=== PATIENT | female | born 1955 | race Caucasian/White ===

== ENCOUNTER 2020-01-15 11:55 | Outpatient (CLI) | payer MEDICARE, SELFPAY ==
--- NOTE | ~2020-01-15 | XR_ITS ---
EXAMINATION: XR_CERV2-3V_CR DATE: 01/15/2020 12:27 INDICATION: Neck pain. TECHNIQUE: 4 views of cervical spine were obtained. COMPARISON: None. FINDINGS: There is 6 degrees levocurvature of cervicothoracic spine. Vertebral body heights are abdon l. There is mildly decreased disc height at C3-C4 and C4-C5 and moderately decreased disc height at C 5-C6 and C6-C7. There is multilevel uncovertebral joint osteoarthritis, severe bilaterally at C5-C6 a nd C6-C7 and on the right at C4-C5. There is multilevel facet joint osteoarthritis, severe bilaterall y at C7-T1. There is mild central canal stenosis at C5-C6 and C6-C7. No prevertebral soft tissue swel ling. IMPRESSION: 1. Severe cervical spondylosis. Reviewed, dictated and finalized at location A.
== END 2020-01-15 11:56 | disposition home or self-care (01) ==
LOC: ANHIMG 12:04
PROVIDERS: PCP Emergency Medicine; Visit Provider Emergency Medicine
DX: R20.0 Anesthesia of skin (principal); M47.892 Other spondylosis, cervical region
CPT/HCPCS: 72040

== ENCOUNTER 2020-04-07 02:08 | Outpatient (CLI) | payer MEDICARE, SELFPAY ==
[2020-04-07 20:49] LABS: SARS-CoV-2 RNA PCR Negative
== END 2020-04-07 02:09 | disposition home or self-care (01) ==
LOC: ANHCOVIDDT 02:08
PROVIDERS: PCP Emergency Medicine; Visit Provider Internal Medicine Gastroenterology
DX: Z01.812 Encounter for preprocedural laboratory examination (principal); Z20.828 Contact with and (suspected) exposure to other viral communicable diseases
CPT/HCPCS: 87635; C9803; U0003

== ENCOUNTER 2020-04-09 01:38 | Day surgery (SDC) | payer MEDICARE, SELFPAY ==
[2020-04-05 09:55] VITALS: BMI 28.5
[2020-04-09 07:16] VITALS: BMI 29.2
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
[2020-04-09] MEDS: LACTATED RINGERS 1,000 ML 150 ML IV CONT (07:32)
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
[2020-04-09 09:04] VITALS: BP 97/66; PULSE 57; RESP 23; O2SAT 98
[2020-04-09 09:14] VITALS: BP 102/65; PULSE 55; RESP 18; O2SAT 98
[2020-04-09 09:24] VITALS: BP 115/75; PULSE 54; RESP 16; O2SAT 98
== END 2020-04-09 09:50 | disposition home or self-care (01) ==
PROVIDERS: PCP Emergency Medicine; Visit Provider Internal Medicine Gastroenterology
PROC: 0DJD8ZZ Inspection of Lower Intestinal Tract, Via Natural or Artificial Opening Endoscopic (ICD-10-PCS; CPT 45378; principal; 2020-04-09 08:30)
DX: Z12.11 Encounter for screening for malignant neoplasm of colon (principal); D12.4 Benign neoplasm of descending colon; D12.5 Benign neoplasm of sigmoid colon; K57.30 Diverticulosis of large intestine without perforation or abscess without bleeding; K21.9 Gastro-esophageal reflux disease without esophagitis; F41.9 Anxiety disorder, unspecified; F31.9 Bipolar disorder, unspecified; Z79.51 Long term (current) use of inhaled steroids; Z79.899 Other long term (current) drug therapy
CPT/HCPCS: 45385; 88305; J2001; J2704; J7120

== ENCOUNTER 2020-04-20 10:00 | Outpatient (RCR) | payer MEDICARE, SELFPAY ==
--- NOTE | 2020-01-27 09:24 | PTOPEVAL ---
Thank you for referring Cherelle Redding to [facility] [place]. Please review, sign, date and return this plan of care LUNA. Pt referred to therapy services to address neck pain and radiating UE symptoms. She requires additional skilled therapy to address UE impairments and decreased tolerance with daily activities. Cont PT 2x/wk x 8 wk to improve UE function. I agree with and certify that the following plan of care is medically necessary. Referring Physician Date Attending Provider: Brian Rodriguez MD *PT Outpatient Evaluation Start: 01/27/20 08:00 Freq: Status: Active Protocol: Document 01/27/20 08:00 ARTURO (Rec: 01/27/20 08:48 [facility] [id number]) Therapy Assessment Status Assessment Status Assessment Status Evaluation Outpatient Past Medical History Past Medical History Source of Past Medical History Patient Musculoskeletal History Hx Fractures Yes Hx Other Musculoskeletal Disorders Yes: right humerour fracture 70's Psychosocial History Hx Bipolar Disorder Yes Evaluation Information Problem Diagnosis cervicalgia, spondylosis cervical region Onset January 04 Cause unknown Subjective Information Reports she has numbness and Query Text:As Reported By Patient/ shaking of syed UE with Family activities. She reports UE shaking with any holding or carrying of objects. Difficulty with heavy objects. Reports numbness and tingling of last 2 finger of syed hands that is constant with varied intensity. Reports difficulty with reaching in the am, but she sleeps on her stomach with UE tucked under her chest. Denies changes with prolonged sitting and standing. But difficulty with fine motor task of typing or use of the phone. Diagnostic Tests X-Rays For This Problem Yes Previous Treatments Previous Treatments For This Problem no Pain Assessment Timing of Pain Assessment Timing of Pain Assessment Assessment Pain Scale Pain Scale Used Numeric (1 - 10) Self Report Pain Assessment Left Arm(s) Reported Pain Level 6 Pain Description Numbness,Radiating,Tightness, Tingling Pain Frequency Continuous Lowest Pain Intensity 6 Greatest Pain Intens
--- NOTE | 2020-02-19 11:54 | PCPTNOTE ---
Patient did not show up for scheduled appointment this date.Called pt, she had the wrong time. Rescheduled for 02/20/20.
--- NOTE | 2020-02-20 11:23 | PTOPEVAL ---
Thank you for referring Cherelle Redding to [facility]. Please review, sign, date and return this plan of care LUNA. Pt has received 8 therapy visits to address neck pain and radiating UE symptoms. She is progressing towards her therapy goals with improved pain, improved cervical motion, improved radiating UE symptoms. She requires additional skilled therapy to achieve maximal potential. Cont PT 2x/wk x 4 wk. I agree with and certify that the following plan of care is medically necessary. Referring Physician Date Admitting Provider: Attending Provider: Brian Rodriguez MD PT re-assessment note *PT Outpatient Evaluation Start: 01/27/20 08:00 Freq: Status: Active Protocol: Document 02/20/20 07:23 ARTURO (Rec: 02/20/20 07:48 [facility] [id number]) Therapy Assessment Status Assessment Status Re-evaluation Evaluation Information Problem Diagnosis cervicalgia, spondylosis cervical region Onset January 04 Cause unknown Additional Evaluation Detail Reports difficulty with reaching in the am, but she sleeps on her stomach with UE tucked under her chest. Denies changes with prolonged sitting and standing. Subjective Information Reports her UE shaking is Query Text:As Reported By Patient/ improving with improved Family ability to perform daily task. She has increased shaking with UE extended in front of her. She reports improved UE radiating symptoms with localized acheness of forearm. She is able to carry heavier objects when close to her body , vs out in front. Reports improved difficulty with fine motor task of typing or use of the phone. She is focusing on her sleeping position to improve UE position and symptoms. She is taking daily walks and trying to focus on activities to decrease her stress level. She is wanting to go to the gym to swim or walk in the water. Pain Assessment Timing of Pain Assessment Timing of Pain Assessment Re-assessment Pain Scale Pain Scale Used Numeric (1 - 10) Self Report Pain Assessment Left Arm(s) Reported Pain Level
--- NOTE | 2020-03-24 15:25 | PTOPEVAL ---
Thank you for referring Cherelle Redding to [facility] The patient is scheduled to be seen for therapy?1 x/week for 4 weeks. Please review, sign, date and return this plan of care LUNA. I agree with and certify that the following plan of care is medically necessary. Referring Physician Date Admitting Provider: Attending Provider: Brian Rodriguez MD Physical therapy progress note *PT Outpatient Evaluation Start: 01/27/20 08:00 Freq: Status: Active Protocol: Document 03/24/20 13:28 ARTURO (Rec: 03/24/20 14:14 ARTURO [id number]) Therapy Assessment Status Assessment Status Assessment Status Re-evaluation Evaluation Information Problem Diagnosis cervicalgia, spondylosis cervical region Onset January 04 Cause unknown Subjective Information Reports she is limiting the Query Text:As Reported By Patient/ amount of leaning on her UE Family when at the table which has improved her UE symptoms. She is performing her HEP consistently and has tolerated progression to 2# weights. Reports her right UE shaking has improving with improved ability to perform daily task. She cont ot have increased shaking with left UE extended with reaching activities. She has a wrist splint for night that has improved her hand/ wrist position. She cont to have the UE radiating symptoms . 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 But she cont to have the shaking with light objects in front of her. Reports improved fine motor with use of the phone or any task with the UE below chest level. Pain Assessment Timing of Pain Assessment Timing of Pain Assessment Re-assessment Pain Scale Pain Scale Used Numeric (1 - 10) Self Report Pain Assessment Left Arm(s) Reported Pain Level 3 Pain Description Aching,Numbness,Radiating, Tingling Pain Radiation Left Arm Pain Frequency Chronic Lowest Pain Intensity 1 Greatest Pain Intensity 4
--- NOTE | 2020-03-29 12:05 | PCPTNOTE ---
Pt No-showed and no-called for appointment this date.
--- NOTE | 2020-04-20 10:42 | PTOPEVAL ---
Thank you for referring Cherelle Redding to [facility].? Pt has been seen for 18 therapy visits to address neck and UE symptoms. She demonstrates improved UE symptoms, strength, neck motion and decreased soft tissue restrictions. She is indep with her HEP at this time. She has achieved her therapy goals. DC skilled therapy services with pt to cont with her HEP. Please review, sign, date and return this plan of care LUNA. I agree with and certify that the following plan of care is medically necessary. Referring Physician Date Attending Provider: Brian Rodriguez MD *PT Outpatient Evaluation Start: 01/27/20 08:00 Freq: Status: Active Protocol: Document 04/20/20 09:59 ARTURO (Rec: 04/20/20 10:40 [facility] [id number]) Therapy Assessment Status Assessment Status Assessment Status Re-evaluation/Discharge Note Evaluation Information Problem Diagnosis cervicalgia, spondylosis cervical region Onset January 04 Cause unknown Additional Evaluation Detail Denies changes with prolonged sitting and standing. Subjective Information She reports no symptoms in her Query Text:As Reported By Patient/ right UE. She has left elbow Family dull ache pain that has decreased since she started therapy. She is able to kd stomach sleeping better with decreased flare-up of symptoms . Reports she is more aware of her posture and UE position with daily activities. She stopped performing her HEP and noticed an increase in her symptoms. But when she resumed her exercise the symptoms improved. But she cont to have the shaking with light objects in front of her, but it has improved since the start of therapy. Pain Assessment Timing of Pain Assessment Timing of Pain Assessment Re-assessment Pain Scale Pain Scale Used Numeric (1 - 10) Self Report Pain Assessment Left Arm(s) Reported Pain Level 2 Pain Description Aching,Dull Pain Frequency Intermittent Lowest Pain Intensity 0 Greatest Pain Intensity 3 Right Arm(s) Reported Pain Level 0 Bilateral Posterior Lateral Neck Reported Pain Level 0 Pain Score Pain Score
== END 2020-04-20 14:23 | disposition home or self-care (01) ==
LOC: ANHPT 10:00
PROVIDERS: PCP Emergency Medicine; Visit Provider Emergency Medicine
DX: M54.2 Cervicalgia (principal); M47.812 Spondylosis without myelopathy or radiculopathy, cervical region
CPT/HCPCS: 97014; 97110; 97112; 97140; 97162; G0283

== ENCOUNTER 2020-05-17 07:45 | Outpatient (CLI) | payer MEDICARE, SELFPAY ==
--- NOTE | ~2020-05-17 | MM_ITS ---
EXAMINATION: MM screening ender BI w antoni HISTORY: Screening TECHNIQUE: Craniocaudal and mediolateral oblique 3-D tomosynthesis images were obtained and synthetic 2-D images were generated. CAD analysis was submitted and interpreted. COMPARISON: No prior mammogram is available for comparison at this institution. BREAST PARENCHYMAL COMPOSITION: There are scattered areas of fibroglandular density. FINDINGS: There is no evidence of suspicious mass, calcification, or architectural distortion to sugg est malignancy in either breast. There has been no suspicious interval change. IMPRESSION: 1. No mammographic evidence of malignancy. 2. Recommend routine screening mammography in one year. BI-RADS Category 1: Negative Reviewed, dictated and finalized at location A.
--- NOTE | ~2020-05-17 | DEXA_ITS ---
Bone Density Report Name: Cherelle Redding Age: 64 Sex: Female Ethnicity: White Date of : 1955 Indication: postmenopausal; parental hip fracture; height loss; asthma or emphysema; Referring Provider: NAEL AARON Study: Bone densitometry was performed. Exam Date: May 17, 2020 Accession number: [id number] Bone Density: Region BMD T-score Z-score Classification AP Spine (L1-L4) 0.861 -1.7 0.1 Osteopenia Femoral Neck (Left) 0.722 -1.1 0.4 Osteopenia Total Hip (Left) 0.876 -0.5 0.7 Normal Total Hip Bilateral Avg 0.826 -1.0 0.3 Normal Femoral Neck (Right) 0.633 -1.9 -0.4 Osteopenia Total Hip (Right) 0.775 -1.4 -0.1 Osteopenia World Health Organization criteria for BMD impression classify patients as: Normal (T-score at or above -1.0), Osteopenia (T-score between -1.0 and -2.5), or Osteoporosis (T-score at or below -2.5). 10-year Fracture Risk(1): Major Osteoporotic Fracture 19% Hip Fracture 1.8% Reported Risk Factors: [place] (), Neck BMD=0.633, BMI=29.3, parental fracture (1) FRAX(R) Version 3.08. Fracture probability calculated for an untreated patient. Fracture probability may be lower if the patient has received treatment. Clinical Information Provided by Patient: Parent has had a hip fracture Has the following medical conditions: Asthma or Emphysema Patient maximum height was 61 Menopause Age: 54 Drinks caffeinated beverages Onset of menses at age 13 Number of children 2 Impression: The patient has low bone mass, based on the Right Femoral Neck T-score. The patient has an estimated ten-year risk of hip fracture of 1.8% and an estimated ten-year risk of major fracture of 19%, based on the WHO FRAX algorithm. The patient has risk factors, including: parental hip fracture. Discussion: BONE DENSITY IS LOW AT ONE OR MORE SKELETAL SITES. This patient's lowest T-score is low at one or more skeletal sites. It meets the World Health Organization's (WHO) criteria for ?low bone mass? (T-score between -1.0 and -2.5). The patient's 10-year risk of fracture as calculated by FRAX is less than the threshold where pharmacological therapy is recommended by the National Osteoporosis Foundation (NOF). However, all treatment decisions require clinical judgment and consideration of individual patient factors, including patient preferences, comorbidities, previous drug use, risk factors not captured in the FRAX model (e.g., frailty, falls, vitamin D deficiency, increased bone turnover, interval significant decline in bone density) and possible under or overestimation of fracture risk by FRAX. The patient should follow a healthful lifestyle (good nutrition with adequate calcium and vitamin D, and appropriate weight-bearing exercise). Follow-Up: Consider repeating this study in 2 to 3 years to joselyn
== END 2020-05-17 07:46 | disposition home or self-care (01) ==
PROVIDERS: PCP Emergency Medicine; Visit Provider Obstetrics & Gynecology Gynecology
DX: Z12.31 Encounter for screening mammogram for malignant neoplasm of breast (principal); Z78.0 Asymptomatic menopausal state; M85.80 Other specified disorders of bone density and structure, unspecified site
CPT/HCPCS: 77063; 77067; 77080

== ENCOUNTER 2021-01-07 16:34 | Emergency (ER) | payer MEDICARE, SELFPAY ==
--- NOTE | ~2021-01-07 | XR_ITS ---
XR knee RT min 4V DATE: 01/07/2021 17:08 INDICATION: Fall, injury, right knee pain TECHNIQUE: 4 views COMPARISON: None FINDINGS: There is prominent suprapatellar knee joint effusion. There is minimal periarticular spurring of the patella. There is moderate loss of interspace height a nd mild particular spurring at the medial compartment. No fracture or dislocation, periosteal reaction or bone destruction is detected. No radiopaque intra- articular loose body or chondrocalcinosis. IMPRESSION: Suprapatellar knee joint effusion Osteoarthritis at medial and to a lesser extent patellofemoral compartments Reviewed, dictated and finalized at location A.
[2021-01-07 16:47] VITALS: BP 127/70; PULSE 90; RESP 16; TEMP 36.4; O2SAT 99
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
== END 2021-01-07 17:56 | disposition home or self-care (01) ==
PROVIDERS: Emergency Provider Registered Nurse; PCP Emergency Medicine
DX: M25.461 Effusion, right knee (principal); M17.11 Unilateral primary osteoarthritis, right knee; K21.9 Gastro-esophageal reflux disease without esophagitis; M81.0 Age-related osteoporosis without current pathological fracture; F31.9 Bipolar disorder, unspecified
CPT/HCPCS: 73564; 99213; G0463

== ENCOUNTER → 2021-01-20 11:25 | Outpatient (CLI) | payer MEDICARE, SELFPAY ==
--- NOTE | ~2021-01-20 | MR_ITS ---
EXAMINATION: MR knee RT wo con DATE: 01/20/2021 12:01 INDICATION: Left knee pain post fall TECHNIQUE: Magnetic resonance imaging (MRI) of the left knee was performed without intravenous contra st. Sequences included coronal PD-weighted FSE, coronal PD-weighted FS FSE, sagittal T2-weighted FSE , sagittal PD-weighted FS FSE and axial PD weighted fat saturated FSE. COMPARISON: Left knee radiographs dated 01/07/2021 FINDINGS: Medial compartment: There is a radial tear/avulsion at the posterior root of the medial meniscus with 8 x 5 x 7 mm hetero topic ossicle replacing the lateral side of the posterior horn at the site of the tear. There is mild medial extrusion of the meniscal body where there is a longitudinal horizontal tear extending to con tact the inferior surface. Partial-thickness cartilage loss involving greater than 50% the cartilage thickness at the medial two thirds of the medial tibial plateau with mild underlying subarticular justice ma. Additional partial thickness cartilage loss throughout the weightbearing medial femoral condyle m ost prominent anteriorly and centrally where it involves greater than 50% the cartilage thickness. Th ere is scattered chondral ulceration and fissuring. Small region of cortical irregularity and mild schneider barticular edema at the central weightbearing medial femoral condyle and more extensive cortical irre gularity with edema and subarticular cystic changes along the posterior weightbearing medial femoral condyle. Lateral compartment: Bucket-handle tear involving the body and posterior horn of the lateral meniscus with anterior displa cement of the flap resulting in a double anterior horn sign and with portion of the displaced flap ex tending posteriorly along the intercondylar eminence. The nondisplaced body and posterior horn of the lateral meniscus are diminutive. There is a subarticular likely stress fracture resulting from the d isplaced meniscal flap which results in a shallow concavity to the lateral aspect of the anterior atul ghtbearing lateral femoral condyle with curvilinear low signal intensity subarticular fracture line a nd surrounding marrow edema. The cartilage in the lateral compartment appears relatively preserved. Patellofemoral compartment: Partial-thickness cartilage loss along the cephalad half of the patella with tiny focus of subarticul ar edema underlying a region of deeper fissuring at the cephalad aspect of the apical ridge and later al margin of the medial facet. Trochlear cartilage appears relatively preserved. Ligaments and tendons: There is a tear at the proximal aspect of the anterior cruciate ligament with lax appearance and shal low angle of the anterior cruciate ligament more distally in the intercondylar notch. The posterior c ruciate ligament is normal. The medial collateral ligament and fibular collateral ligament complex ar e normal. The extensor mechanism is normal. The visualized medial and lateral hamstring tendons as we ll as the iliotibial band are normal. Fluid: Small to moderate-sized right knee joint effusion. Mild synovitis at the suprapatellar pouch and denise g the posterior margin of Hoffa's fat pad. Small Reyes's cyst. No loose osteochondral bodies identifi ed. Osseous/other: Bone alignment is normal. No other fracture site from the previous noted stress fracture at the later al femoral condyle. No pathologic marrow replacing process. IMPRESSION: 1. Complete tear of the proximal anterior cruciate ligament. 2. Anteriorly displaced bucket-handle tear of the lateral meniscus. 3. Likely stress fracture of the anterolateral aspect of the weightbearing lateral femoral condyle li josh resulting from altered stress distribution secondary to the underlying displaced meniscal flap. 4. Likely chronic radial tear/avulsion at the posterior root of the medial meniscus with heterotopic ossification within the posterio
== END ==
PROVIDERS: Visit Provider Orthopaedic Surgery
DX: S83.501A Sprain of unspecified cruciate ligament of right knee, initial encounter (principal); M17.11 Unilateral primary osteoarthritis, right knee; M25.461 Effusion, right knee; M71.21 Synovial cyst of popliteal space [Baker], right knee
CPT/HCPCS: 73721

== ENCOUNTER 2021-03-29 00:29 | Day surgery (SDC) | payer MEDICARE, SELFPAY ==
[2021-03-17 15:24] VITALS: BMI 28.3
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
[2021-03-29] VITALS (8 sets, daily range): BP systolic 137–157; BP diastolic 71–96; PULSE 56–81; RESP 13–18; TEMP 36.2–36.4; O2SAT 97–100
--- NOTE | 2021-03-29 07:23 | WPDHPUPDATE1 ---
History and Physical Update Update Date/Time: 03/29/21 07:23 History and Physical has been reviewed, including an updated exam of the patient. There are NO changes in the patient's condition. Risks, benefits, and alternatives have been discussed and questions answered. Patient agrees to proceed with procedure.
[2021-03-29] MEDS: ACETAMINOPHEN 500 MG TABLET 1000 MG PO (10:34)
[2021-03-29] MEDS: CELECOXIB 200 MG CAPSULE PO (10:34)
[2021-03-29] MEDS: LACTATED RINGERS 1,000 ML 30 ML IV CONT ×2 (10:45→13:58)
[2021-03-29] MEDS: ceFAZolin 2 GM/D5W 50 ML 2 GM/50 ML BAG IVPB (12:06)
[2021-03-29] MEDS: BUPIVACAINE HCL 0.5% PF 30 ML VIAL INFILTRATE (12:53)
--- NOTE | 2021-03-29 13:52 | W.PM.PROC2 ---
Procedure Note - Detailed Date of Procedure 03/29/21 Pre-op Diagnosis right medial and lateral meniscus tear Post-op Diagnosis same Procedure Performed RIGHT KNEE SCOPE Surgeon Gene Morrison MD Anesthesia general Description of Procedure PATIENT WAS TAKEN TO THE OR. RIGHT LEG WAS PREPPED AND DRAPED STERILE. TROCARS WERE PLACED IN THE USUAL FASHION. CAMERA WAS INTRODUCED. THERE WAS CHONDROMALACIA TO THE PATELLA FEMORAL JOINT. THERE WAS A LOT OF SYNOVITIS IN ALL COMPARTMENTS. THE MEDIAL COMPARTMENT SHOWED CHONDROMALACIA AND FULL THICKNESS DEFECT TO THE MEDIAL FEMORAL CONDYLE. A SHAVER WAS USED TO PREFORM A CHONDROPLASTY. THERE WAS A COMPLEX MEDIAL MENISCUS TEAR. THE TEAR WAS RESECTED WITH A BITER AND A SHAVER DOWN TO A SMOOTH BASE. ABOUT 30% OF THE MENISCUS WAS REMOVED. THE ACL WAS INTACT. THE LATERAL MENISCUS WAS TORN AT THE ANTERIOR HORN. THE TEAR WAS RESECTED. THE LAT COMPARTMENT HAD GRADE 2 CHONDROMALACIA AT THE LATERAL PLATEAU. CHONDROPLASTY WAS PREFORMED. A SYNOVECTOMY WAS PREFORMED WELL. THE PATELLO FEMORAL JOINT UNDERWENT CHONDROPLASTY. THERE WAS GRADE 2 CHONDROMALACIA IN MOST OF THE TROCHLEA AND PART OF THE PATELLA. SYNOVECTOMY WAS PREFORMED IN THE SUPERIOR MEDIAL COMPARTMENT. THE WOUNDS WERE APPROXIMATED WITH 4.0 NYLON. STERILE DRESSING WAS APPLIED. PATIENT WAS EXTUBATED. Estimated Blood Loss 5 Complications No immediate complications Condition stable Disposition PACU
[2021-03-29] MEDS: oxyCODONE HCL (*CRX) 5 MG TAB IR PO (14:47)
== END 2021-03-29 15:20 | disposition home or self-care (01) ==
PROVIDERS: PCP Emergency Medicine; Visit Provider Orthopaedic Surgery
PROC: (CPT 29870; principal; 2021-03-29 12:00)
DX: S83.231A Complex tear of medial meniscus, current injury, right knee, initial encounter (principal); S83.281A Other tear of lateral meniscus, current injury, right knee, initial encounter; M65.861 Other synovitis and tenosynovitis, right lower leg; M22.41 Chondromalacia patellae, right knee; F31.9 Bipolar disorder, unspecified; F41.9 Anxiety disorder, unspecified; Z79.899 Other long term (current) drug therapy; X58.XXXA Exposure to other specified factors, initial encounter; Y93.9 Activity, unspecified; Y92.9 Unspecified place or not applicable; Y99.9 Unspecified external cause status
CPT/HCPCS: 29880; A9270; J0690; J1100; J2250; J2405; J2704; J3010; J7120

== ENCOUNTER 2021-05-20 14:23 | Outpatient (CLI) | payer MEDICARE, SELFPAY ==
--- NOTE | ~2021-05-20 | MM_ITS ---
EXAMINATION: MM screening ender BI w antoni HISTORY: Screening TECHNIQUE: Craniocaudal and mediolateral oblique 3-D tomosynthesis images were obtained and synthetic 2-D images were generated. CAD analysis was submitted and interpreted. COMPARISON: No prior mammogram is available for comparison at this institution. BREAST PARENCHYMAL COMPOSITION: There are scattered areas of fibroglandular density. FINDINGS: There is no evidence of suspicious mass, calcification, or architectural distortion to sugg est malignancy in either breast. There has been no suspicious interval change. IMPRESSION: 1. No mammographic evidence of malignancy. 2. Recommend routine screening mammography in one year. BI-RADS Category 1: Negative Reviewed, dictated and finalized at location A.
== END 2021-05-20 14:24 | disposition home or self-care (01) ==
LOC: ANHIMG 14:26
PROVIDERS: PCP Emergency Medicine; Visit Provider Obstetrics & Gynecology Gynecology
DX: Z12.31 Encounter for screening mammogram for malignant neoplasm of breast (principal)
CPT/HCPCS: 77063; 77067

== ENCOUNTER 2021-06-22 11:00 | Outpatient (RCR) | payer MEDICARE, SELFPAY ==
--- NOTE | 2021-04-22 09:51 | PTOPEVAL ---
Thank you for referring Cherelle Redding to [facility].? The patient is scheduled to be seen for therapy? 2 x/week for 6 weeks. Please review, sign, date and return this plan of care LUNA. I agree with and certify that the following plan of care is medically necessary. Referring Physician Date Attending Provider: Gene Morrison MD Diagnosis right meniscus tear, OA of knee Onset 01/06/21 Cause fall Additional Evaluation Detail MRI: . Complete tear of the proximal anterior cruciate ligament. 2. Anteriorly displaced bucket -handle tear of the lateral meniscus. 3. Likely stress fracture of the anterolateral aspect of the weightbearing lateral femoral condyle likely resulting from altered stress distribution secondary to the underlying displaced meniscal flap. 4. Likely chronic radial tear/ avulsion at the posterior root of the medial meniscus with heterotopic ossification within the posterior horn at the tear margin. Additional longitudinal horizontal tear in the medial extruded medial meniscal body. 5. Mild to moderate osteoarthritis with extensive moderate and high-grade chondromalacia in the medial compartment. 6. Mild patellofemoral osteoarthritis with small region of moderate and high- grade chondromalacia at the cephalad patella. 7. Small to moderate-sized right knee joint effusion. 8. Small Reyes's cyst. Subjective Information She had a fall down steps Query Text:As Reported By Patient/ landing and twisting on knee. Family She had surgery on 03/29/21. She had a ww she used for 3 days with [facility]. She is working on her knee range and walking the dog as
--- NOTE | 2021-05-05 10:10 | PCPTNOTE ---
Patient called & cancelled scheduled appointment this date due to having to sit with daughter.
--- NOTE | 2021-05-23 11:00 | PTOPEVAL ---
Physical Therapy Progress Note Thank you for referring Cherelle Redding to [facility].? She has attended 9 therapy visits to address her LE impairments related to her knee surgery. She is progressing towards her therapy goals. See summary below for progress and objective information. The patient is scheduled to be seen for therapy? 2 x/week for 4 weeks. Please review, sign, date and return this plan of care LUNA. I agree with and certify that the following plan of care is medically necessary. Referring Physician Date Attending Provider: Gene Morrison MD Diagnosis right meniscus tear, OA of knee Onset 01/06/21 Cause fall Additional Evaluation Detail She had surgery on 03/29/21. MRI: Complete tear of the proximal anterior cruciate ligament. 2. Anteriorly displaced bucket -handle tear of the lateral meniscus. 3. Likely stress fracture of the anterolateral aspect of the weightbearing lateral femoral condyle likely resulting from altered stress distribution secondary to the underlying displaced meniscal flap. 4. Likely chronic radial tear/ avulsion at the posterior root of the medial meniscus with heterotopic ossification within the posterior horn at the tear margin. Additional longitudinal horizontal tear in the medial extruded medial meniscal body. 5. Mild to moderate osteoarthritis with extensive moderate and high-grade chondromalacia in the medial compartment. 6. Mild patellofemoral osteoarthritis with small region of moderate and high- grade chondromalacia at the cephalad patella. 7. Small to moderate-sized right knee joint effusion. 8. Small Reyes's cyst. Subjective Information She does feel her pain is Query Text:As Reported By Patient/ better. Reports improved knee Family motion, ability to get in/
--- NOTE | 2021-06-22 11:49 | PTOPEVAL ---
Physical Therapy Discharge Summary Thank you for referring Cherelle Redding to [facility].?She has attended 17 therapy visits to address her LE impairments following her knee surgery. She has reached maximal potential with skilled therapy services at this time with goals partially achieved. She has been provided a HEP and performs indep. Will DC skilled therapy services at this time. Please review, sign, date and return this discharge summary LUNA. I agree with and certify that the following plan of care is medically necessary. Referring Physician Date Admitting Provider: Attending Provider: Gene Morrison MD Diagnosis right meniscus tear, OA of knee Onset 01/06/21 Cause fall Additional Evaluation Detail She had surgery on 03/29/21. Subjective Information She reports limitations with Query Text:As Reported By Patient/ prolonged sitting and Family negotiating steps. She is able to kneel on the ground and push up with right leg. She thinks she has mental hesitation on steps. Pain Assessment Self Report Pain Assessment Right Knee(s) Reported Pain Level 1 Pain Frequency Chronic,Intermittent Lowest Pain Intensity 0 Greatest Pain Intensity 6 Pain Aggravating Factors Prolonged Position,Stair Climbing Lower Extremity Range of Motion Knee Range of Motion Right Knee Flexion Range of Motion - Active 115 Knee Extension Range of Motion - Active -10 Knee Range of Motion Limitations Pain,Soft Tissue Restriction Lower Extremity Muscle Strength Testing Hip Strength Right Hip Flexion Strength 5 Normal Hip Extension Strength 4- Good - Hip Abduction Strength 4- Good - Knee Strength Right Knee Flexion Strength 5 Normal Knee Extension Strength 5 Normal Extremity Circumference Assessment Circumference Assessment Location Right Body Part Knee Site Descriptor ([place]) lateral knee joint line Circumference (cm) 36 Noninvolved Side Circumference (cm) 34 Circumference Comments inf patella: right: 33 cm, left: 31 cm Balance Assessment Timed Up and Go Test (TUG) (Seconds) 7 Assistive Devices None 5 Time Sit to Stand Time in Seconds 9 5 Time Sit to Stand Comments demo = LE WB with movement Query Text:Normative Data: If Greater Than 15 Seconds, 74% Increase Risk for Recurrent Falls Gait Assessment Gait Pattern Assessment Gait Pattern Trendelenburg Gait Gait Pattern Observed Decreased Stride Length - Left ,Decreased Stride Length -
== END 2021-06-23 10:57 | disposition home or self-care (01) ==
LOC: ANHPT 11:00
PROVIDERS: PCP Emergency Medicine; Visit Provider Orthopaedic Surgery
DX: Z48.89 Encounter for other specified surgical aftercare (principal)
CPT/HCPCS: 97014; 97035; 97110; 97112; 97116; 97140; 97162; 97530; G0283

== ENCOUNTER 2021-09-22 10:04 | Outpatient (CLI) | payer OTHER, SELFPAY ==
--- NOTE | 2021-09-22 11:30 | NEURO_ITS ---
Impression: # Complains of numbness and tremors. # Normal nerve conduction study. # Normal needle/EMG exam with resting tremors. # Clinical correlation recommended. Nerve Conduction Studies Anti Sensory Summary Table Stim Site NR Peak (ms) P-T Amp (?V) Site1 Site2 Delta-P (ms) Dist (cm) Geo (m/s) Left Median Anti Sensory (2-3nd Digit) Wrist 3.0 60.6 Wrist 2-3nd Digit 3.0 14.0 47 Wrist 3.0 76.6 Wrist 2-3nd Digit 3.0 14.0 47 Right Median Anti Sensory (2-3nd Digit) Wrist 3.2 50.5 Wrist 2-3nd Digit 3.2 14.0 44 Wrist 3.0 66.6 Wrist 2-3nd Digit 3.2 14.0 44 Left Radial Anti Sensory (Base 1st Digit) Wrist 1.7 40.1 Wrist Base 1st Digit 1.7 0.0 Right Radial Anti Sensory (Base 1st Digit) Wrist 1.9 19.0 Wrist Base 1st Digit 1.9 0.0 Left Ulnar Anti Sensory (5th Digit) Wrist 2.2 88.8 Wrist 5th Digit 2.2 14.0 64 Right Ulnar Anti Sensory (5th Digit) Wrist 2.1 63.3 Wrist 5th Digit 2.1 14.0 67 Motor Summary Table Stim Site NR Onset (ms) O-P Amp (mV) Site1 Site2 Delta-0 (ms) Dist (cm) Geo (m/s) Left Median Motor (Abd Poll Brev) Wrist 3.4 2.0 Elbow Wrist 5.0 27.0 54 Elbow 8.4 3.3 Right Median Motor (Abd Poll Brev) Wrist 3.3 4.5 Elbow Wrist 5.0 26.0 52 Elbow 8.3 1.8 Left Ulnar Motor (Abd Dig Minimi) Wrist 2.7 4.9 A Elbow Wrist 4.6 27.0 59 A Elbow 7.3 4.1 Right Ulnar Motor (Abd Dig Minimi) Wrist 2.4 7.2 A Elbow Wrist 4.8 28.0 58 A Elbow 7.2 5.5 F Wave Studies NR F-Lat (ms) L-R F-Lat (ms) Left Median (Mrkrs) (Abd Poll Brev) 28.05 0.97 Right Median (Mrkrs) (Abd Poll Brev) 27.08 0.97 Left Ulnar (Mrkrs) (Abd Dig Min) 28.32 1.53 Right Ulnar (Mrkrs) (Abd Dig Min) 26.80 1.53 EMG Side Muscle Nerve Root Ins Act Fibs Amp Dur Recrt Comment Right 1stDorInt Ulnar C8-T1 Nml Nml Nml Nml Nml Right Ext Indicis Radial (Post Int) C7-8 Nml Nml Nml Nml Nml Right Ext Digitorum Radial (Post Int) C7-8 Nml Nml Nml Nml Nml Right BrachioRad Radial C5-6 Nml Nml Nml Nml Nml Right PronatorTeres Median C6-7 Nml Nml Nml Nml Nml Right Abd Poll Brev Median C8-T1 Nml Nml Nml Nml Nml Left 1stDorInt Ulnar C8-T1 Nml Nml Nml Nml Nml Left Ext Indicis Radial (Post Int) C7-8 Nml Nml Nml Nml Nml Left Ext Digitorum Radial (Post Int) C7-8 Nml Nml Nml Nml Nml Left BrachioRad Radial C5-6 Nml Nml Nml Nml Nml Left PronatorTeres Median C6-7 Nml Nml Nml Nml Nml Left Abd Poll Brev Median C8-T1 Nml Nml Nml Nml Nml MTDD
== END 2021-09-22 10:05 | disposition home or self-care (01) ==
PROVIDERS: PCP Emergency Medicine; Visit Provider Emergency Medicine
DX: R25.1 Tremor, unspecified (principal)
CPT/HCPCS: 95886; 95911

== ENCOUNTER 2022-06-05 08:10 | Outpatient (CLI) | payer OTHER, SELFPAY ==
--- NOTE | ~2022-06-05 | MM_ITS ---
EXAMINATION: MM screening [facility] BI w antoni HISTORY: Screening TECHNIQUE: Craniocaudal and mediolateral oblique 3-D tomosynthesis images were obtained and synthetic 2-D images were generated. CAD analysis was submitted and interpreted. COMPARISON: Comparison to multiple prior studies sequentially, with oldest reviewed study dated 05/06. BREAST PARENCHYMAL COMPOSITION: There are scattered areas of fibroglandular density. FINDINGS: There is no evidence of suspicious mass, calcification, or architectural distortion to sugg est malignancy in either breast. There has been no suspicious interval change. IMPRESSION: 1. No mammographic evidence of malignancy. 2. Recommend routine screening mammography in one year. BI-RADS Category 1: Negative Reviewed, dictated and finalized at location A.
== END 2022-06-05 08:11 | disposition home or self-care (01) ==
LOC: ANHIMG 08:12
PROVIDERS: PCP Emergency Medicine; Visit Provider Emergency Medicine
DX: Z12.31 Encounter for screening mammogram for malignant neoplasm of breast (principal)
CPT/HCPCS: 77063; 77067

== ENCOUNTER 2022-10-13 07:34 | Outpatient (CLI) | payer OTHER, SELFPAY ==
--- NOTE | ~2022-10-13 | CT_ITS ---
EXAMINATION: CT abdomen pelvis w con DATE: 10/13/2022 08:14 INDICATION: Epigastric and right upper quadrant abdominal pain, nausea, constipation TECHNIQUE: Computed tomography (CT) of the abdomen and pelvis was performed with 100 CC Omnipaque 350 intravenous contrast. Automated exposure control and iterative reconstruction technique were employe d. Exam dose: 666.74 mGy-cm total exam DLP. COMPARISON: 03/11/2019 pelvic ultrasound 10/04/2018 gallbladder ultrasound FINDINGS: There is a discoid band of atelectasis or scarring in the base of the lingula. There is mil d discoid atelectasis or scarring in the middle lobe as well. Normal heart size. No pericardial or pleural effusion. The liver, gallbladder, bile ducts, pancreas, pancreatic duct, spleen, adrenal glands are unremarkabl e. 1.8 cm upper pole right renal cyst. Up to 8.7 x 11 mm area of hypoenhancement at the anterior mid left kidney, which may be due to focal scarring, cyst or less likely neoplasm. No urinary tract calculus or hydroureteronephrosis. Normal caliber of the abdominal aorta. No intraperitoneal or retroperitoneal or pelvic mass lesion or adenopathy or ascites. The uterus, adnexal areas and urinary bladder are unremarkable. Normal appendix. Diverticulosis of left and right colon. There is focal soft tissue thickening of the proximal transve rse colon with mild pericolic fat stranding which may represent mild focal diverticulitis. No diverti cular abscess is detected. No intraperitoneal free air. No bowel obstruction, bowel wall thickening, pneumatosis or intraperitoneal free air is detected. Anterior wedging and loss of height of T12 and some irregularity of the vertebral endplates of additi onal lower thoracic vertebral bodies may be due to Scheuermann's disease. Chronic T12 compression fra cture is not excluded. IMPRESSION: Focal mild diverticulitis is suggested at the proximal transverse colon Diverticulosis of left and right colon Normal appendix 1.8 cm upper pole right renal cyst Nonspecific focal area of diminished enhancement at the anterior mid left kidney, possibly focal scar , cyst or less likely neoplasm Reviewed, dictated and finalized at Location [facility]. Reviewed, dictated and finalized at location B. D CARE DIRECTOR IMPRESSION: Focal mild diverticulitis is suggested at the proximal transverse colon Diverticulosis of left and right colon Normal appendix 1.8 cm upper pole right renal cyst Nonspecific focal area of diminished enhancement at the anterior mid left kidne y, possibly focal scar, cyst or less likely neoplasm
== END 2022-10-13 07:35 | disposition home or self-care (01) ==
PROVIDERS: PCP Emergency Medicine; Visit Provider Emergency Medicine
DX: R10.9 Unspecified abdominal pain (principal); J44.9 Chronic obstructive pulmonary disease, unspecified; N28.1 Cyst of kidney, acquired; K57.30 Diverticulosis of large intestine without perforation or abscess without bleeding
CPT/HCPCS: 74177; Q9967

== ENCOUNTER 2022-10-19 11:59 | Emergency (ER) | payer OTHER, SELFPAY ==
[2022-10-19 12:02] VITALS: BP 124/70; PULSE 81; RESP 19; TEMP 36.4; O2SAT 99
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
[2022-10-19 13:20] LABS: Basophils Percent Auto 0.4 % (0.2-1.2); Eosinophils Absolute Auto 0.1 K/mm3 (0-0.3); Eosinophils Percent Auto 0.7 % (0-4.4); Hematocrit 44.6 % (37.0-47.0); Hemoglobin 14.3 g/dL (12.0-15.0); Immature Granulocyte Absolute 0.02 K/mm3 (0.00-0.031); Immature Granulocyte Percent A 0.2 % (0-0.5); Lymphocytes Absolute Auto 1.42 K/mm3 (0.9-3.2); Lymphocytes Percent Auto 15.5 % (18.3-44.2); Mean Corpuscular HGB Conc 32.1 g/dl (32-36); Mean Corpuscular Hemoglobin 28.6 pg (26-34); Mean Corpuscular Volume 89.2 fl (80-100); Mean Platelet Volume 9.6 fl (7.4-10.4); Monocytes Absolute Auto 0.5 K/mm3 (0.1-0.6); Monocytes Percent Auto 5.9 % (2.6-8.5); Neutrophils Absolute Auto 7.1 K/mm3 (1.3-6.7); Neutrophils Percent Auto 77.3 % (45.5-73.1); Platelet Count Result 270 k/mm3 (150-375); Red Cell Distribution Width 13.9 % (11.5-14.5); White Blood Count 9.1 K/mm3 (4.5-10.0)
[2022-10-19 13:36] LABS: Amphetamine Screen Urine Negative (Negative); Barbiturate Screen Urine Positive (Negative); Benzodiazepines Screen Urine Negative (Negative); Cannabinoid Screen Urine Negative (Negative); Cocaine Screen Urine Negative (Negative); Methadone Screen Urine Negative (Negative); Opiate Screen Urine Negative (Negative); Phencyclidine Screen Urine Negative (Negative)
[2022-10-19 13:37] LABS: Acetaminophen < 10 ug/mL (10-30); Ethanol < 10 mg/dL (<10); Salicylate < 1.0 mg/dL (2-20)
[2022-10-19 13:38] LABS: Alanine Aminotransferase 21 U/L (6-35); Albumin Level 4.4 g/dL (3.5-5.1); Alkaline Phosphatase 97 U/L (38-126); Anion Gap 5 mmol/L (8-16); Aspartate Amino Transferase 29 U/L (14-36); Bilirubin,Total 0.5 mg/dL (0.2-1.3); Blood Urea Nitrogen 15 mg/dL (7-17); Calcium 9.6 mg/dL (8.4-10.2); Carbon Dioxide 30 mmol/L (22-30); Chloride 104 mmol/L (98-107); Estimated CRCL calculation 43 ml/min; Estimated Glomerular Filt Rate 55; Glucose 105 mg/dL (65-110); Potassium 4.1 mmol/L (3.4-5.0); Sodium 139 mmol/L (137-145)
[2022-10-19 13:56] LABS: SARS-CoV-2 RNA PCR Negative
[2022-10-19] MEDS: LORazepam (*CRX) 0.5 MG TABLET PO (13:59)
[2022-10-19 14:02] LABS: Appearance Urine Cloudy (Clear); Bacteria Urine None Seen /hpf; Bilirubin Urine Negative (Negative); Blood Urine Trace (Negative); Color Urine Yellow (Yellow); Glucose Urine UA Negative (Negative); Ketones Urine Negative (Negative); Leukocyte Esterase Ur 2+ LEU/UL (Negative); Need Manual Microscopic Reviewed; Nitrate Urine Positive (Negative); Non Pathogenic Casts 0-2; Protein Urine Trace mg/dL (Negative); Specific Grav Ur 1.022 (1.001-1.035); Squamous Epithelial Cell Urine Occasional /hpf (Few); Urobilinogen Urine 0.2 mg/dL (<2.0); WBC Urine 51-100 /hpf
[2022-10-19 14:09] LABS: Add Urine Microscopic? YES
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
== END 2022-10-19 15:27 | disposition home or self-care (01) ==
PROVIDERS: Emergency Provider Emergency Medicine; PCP Emergency Medicine
DX: F41.9 Anxiety disorder, unspecified (principal); N39.0 Urinary tract infection, site not specified; Z20.822 Contact with and (suspected) exposure to COVID-19; J45.909 Unspecified asthma, uncomplicated; F31.9 Bipolar disorder, unspecified; K21.9 Gastro-esophageal reflux disease without esophagitis; M81.0 Age-related osteoporosis without current pathological fracture; Z87.11 Personal history of peptic ulcer disease; Z77.22 Contact with and (suspected) exposure to environmental tobacco smoke (acute) (chronic); Z79.899 Other long term (current) drug therapy
CPT/HCPCS: 36415; 80053; 80307; 81001; 84443; 85025; 87077; 87086; 87186; 99283; A9270; U0003; U0005

== ENCOUNTER 2022-11-18 08:51 | Outpatient (CLI) | payer OTHER, SELFPAY ==
--- NOTE | ~2022-11-18 | XR_ITS ---
Right Knee Technique: AP and lateral views were obtained. Clinical History: Pain Findings: No fracture or dislocation is seen. Osseous alignment is anatomic. Mild tricompartmental de generative spurring noted. Soft tissues are unremarkable. No joint effusion is seen. Impression: Mild tricompartmental osteoarthritic change. Reviewed, dictated and finalized at location . Impression: Mild tricompartmental osteoarthritic change.
== END 2022-11-18 08:52 | disposition home or self-care (01) ==
LOC: ANHIMG 09:03
PROVIDERS: PCP Emergency Medicine; Visit Provider Emergency Medicine
DX: M25.561 Pain in right knee (principal); M17.11 Unilateral primary osteoarthritis, right knee
CPT/HCPCS: 73560

== ENCOUNTER 2022-11-27 13:38 | Outpatient (CLI) | payer OTHER, SELFPAY ==
--- NOTE | ~2022-11-27 | US_ITS ---
EXAMINATION: US renal BI DATE: 11/27/2022 14:18 INDICATION: Acquired cyst of the kidney TECHNIQUE: Multiple grayscale and Doppler ultrasound images of the kidneys were obtained. COMPARISON: 10/13/2022 FINDINGS: The right kidney measures 10.2 x 3.4 x 5.0 cm and contains a 2.3 cm cyst. The left kidney m easures 10.3 x 5.3 x 6.3 cm. The kidneys demonstrate normal parenchymal echogenicity. There is no hyd ronephrosis. The bladder is normal. IMPRESSION: 1. No sonographic correlate identified for the indeterminate left breast mass on recent CT. Given its appearance on the comparison CT, further evaluation by CT or MRI without and with contrast is recomm ended. Reviewed, dictated and finalized at location L. IMPRESSION: 1. No sonographic correlate identified for the indeterminate left breast mass o n recent CT. Given its appearance on the comparison CT, further evaluation by C T or MRI without and with contrast is recommended.
== END 2022-11-27 13:39 | disposition home or self-care (01) ==
PROVIDERS: PCP Emergency Medicine; Visit Provider Emergency Medicine
DX: N28.1 Cyst of kidney, acquired (principal)
CPT/HCPCS: 76775

== ENCOUNTER 2023-08-29 08:41 | Outpatient (CLI) | payer OTHER, SELFPAY ==
--- NOTE | ~2023-08-29 | DEXA_ITS ---
Bone Density Report Name: GATO KAPOOR Age: 68 Sex: Female Ethnicity: White Date of : 1955 Indication: osteopenia; monitoring treatment; parental hip fracture; height loss; asthma or emphysema; postmenopausal Referring Provider: KRISHNA, GILMAR Study: Bone densitometry was performed. Exam Date: August 29, 2023 Accession number: [id number] Bone Density: Region BMD T-score Z-score Classification AP Spine(L1-L4) 0.911 -1.2 0.8 Osteopenia Femoral Neck (Left) 0.757 -0.8 0.9 Normal Total Hip (Left) 0.883 -0.5 1.0 Normal Femoral Neck (Right) 0.657 -1.7 0.0 Osteopenia Total Hip (Right) 0.831 -0.9 0.5 Normal Total Hip Mean 0.857 -0.7 0.8 Normal World Health Organization criteria for BMD impression classify patients as: Normal (T-score at or above -1.0), Osteopenia (T-score between -1.0 and -2.5), or Osteoporosis (T-score at or below -2.5). 10-year Fracture Risk: FRAX not reported because: Treated for osteoporosis Previous Exams: Region Exam Age BMD T-score BMD Change BMD Change Date g/cm2 vs Baseline vs Previous Total Hip(Left) 08/29/2023 68 0.883 -0.5 0.007 (0.8%) 0.007 (0.8%) 05/17/2020 64 0.876 -0.5 Total Hip(Right) 08/29/2023 68 0.831 -0.9 0.056 (7.2%)* 0.056 (7.2%)* 05/17/2020 64 0.775 -1.4 *Denotes significance at 95% confidence level, LSC for Total Hip = 0.027 g/cm2 Clinical Information Provided by Patient: Parent has had a hip fracture Is being treated for osteoporosis Has used the following medications: Fosamax (i.e. alendronate), Vitamin D, Calcium Has the following medical conditions: Asthma or Emphysema Patient maximum height was 61 Menopause Age: 54 Drinks caffeinated beverages Onset of menses at age 13 Number of children 2 Impression: The patient has low bone mass, based on the Right Femoral Neck T-score. The patient has risk factors, including: parental hip fracture. No significant bone loss was observed. Discussion: PATIENT UNDER TREATMENT WITH NO SIGNIFICANT BMD LOSS SINCE LAST EXAM. In an untreated patient, BMD typically declines with age. A lack of decline or gain is usually a sign that treatment is efficacious and fracture risk is reduced. It is important to ask patients whether they are taking their medications and to encourage continued and appropriate compliance with their osteoporosis therapies to reduce fracture risk. It is also important to review their risk factors and encourage appropriate calcium and vitamin D in
== END 2023-08-29 08:42 | disposition home or self-care (01) ==
PROVIDERS: PCP Emergency Medicine; Visit Provider Nurse Practitioner
DX: M85.88 Other specified disorders of bone density and structure, other site (principal); M85.851 Other specified disorders of bone density and structure, right thigh
CPT/HCPCS: 77080

== ENCOUNTER 2023-12-12 13:29 | Outpatient (CLI) | payer OTHER, SELFPAY ==
--- NOTE | ~2023-12-12 | XR_ITS ---
EXAMINATION: XR hand RT 2V DATE: 12/12/2023 13:45 INDICATION: Right finger pain. TECHNIQUE: 2 views of right hand were obtained. COMPARISON: Right wrist radiographs 06/12/2008 FINDINGS: Bone alignment is normal. No fracture. There is mild osteoarthritis of first carpometacarpa l joint and some of the metacarpophalangeal joints and interphalangeal joints. IMPRESSION: 1. Mild polyarticular osteoarthritis. Reviewed, dictated and finalized at location A.
== END 2023-12-12 13:30 | disposition home or self-care (01) ==
LOC: ANHIMG 13:30
PROVIDERS: PCP Emergency Medicine; Visit Provider Emergency Medicine
DX: M19.041 Primary osteoarthritis, right hand (principal)
CPT/HCPCS: 73120

== ENCOUNTER 2024-08-04 00:16 | Day surgery (SDC) | payer OTHER, SELFPAY ==
--- NOTE | 2024-07-18 14:28 | PC.NURSE ---
Report to the Outpatient Waiting Room, entrance under the green pavilion located off [facility], at time 6:30 am on date 08/04/24 . Planned Procedure Time: _8:30 am .? Time changes happen often and if your time is changed the preop area will call you the afternoon before. - You and your visitor will be asked to self-screen and do not enter if you have any COVID symptoms. Please call surgeon if you need to reschedule. - A mask is optional within the hospital at this time. Patients may have clear liquids (water, carbonated beverages, clear teas, apple juice) until 3 hours prior to surgery( 5:30 am) with a maximum of 20 ounces. - No food from midnight until time of surgery and no smoking. This includes no chewing gum, candy or mints. Take only the following medications with a SIP of water on the morning of surgery: inhaler if needed,sertraline,bupripion DO NOT STOP ANY OF YOUR OTHER PRESCRIPTION MEDICATIONS PRIOR TO SURGERY EXCEPT THE FOLLOWING Medications to discontinue per physician hold all vitamins and supplements 3 days pre op Date to take last dose__07/31/24 Please no make-up, nail irish, hairspray, perfume, deodorant, or body powder the day of surgery.? No jewelry (including any body piercings) or valuables the day of surgery, leave them at home.? Please take a shower or bath the night before, or the morning of, surgery with an antibacterial soap.? Wear comfortable, loose fitting clothing.? Children are encouraged to wear pajamas. - Jewelry must be removed prior to entering the operating room.? Rings and piercings that are not removed may be cut off. - The hospital will not accept responsibility for valuables.? - Please leave all valuables, including medications, at home the day of surgery. If you are going home after surgery, a licensed shuttle truck driver must drive you home.? - NO public transportation without another adult if you receive anesthesia. - We recommend that an adult stay with you for 24 hours following discharge. - We also recommend that you do not drive, make important decision, drink alcoholic beverages, or take any drugs that were not prescribed by your health care provider for at least 24 hours after your discharge time. For Pediatric surgeries, we recommend two adults accompany the child home. Follow any additional instructions given to you from your surgeon. Telephone instructions given to __patient and asked if any additional questions and then verbalized understanding. Patient advised to call surgeon office or pre surgery nurse liaison [phone] if any additional questions.
[2024-07-18 14:50] VITALS: BMI 30.2
[2024-08-04] MEDS: ACETAMINOPHEN 500 MG TABLET 1000 MG PO (07:15)
--- NOTE | 2024-08-04 07:17 | WPDHPUPDATE1 ---
History and Physical Update Update Date/Time: 08/04/24 07:17 History and Physical has been reviewed, including an updated exam of the patient. There are NO changes in the patient's condition. Risks, benefits, and alternatives have been discussed and questions answered. Patient agrees to proceed with procedure.
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
[2024-08-04] MEDS: LACTATED RINGERS 1,000 ML 30 ML IV CONT (07:20)
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
[2024-08-04 07:30] VITALS: BP 124/78; PULSE 65; RESP 20; TEMP 36.6; O2SAT 96
[2024-08-04 09:00] VITALS: BP 82/48; PULSE 71; RESP 16; O2SAT 93
--- NOTE | 2024-08-04 09:00 | P.OP_ITS ---
Procedure Note - Detailed Date of Procedure 08/04/24 Pre-op Diagnosis Post Menopausal Bleeding Post-op Diagnosis Same Procedure Performed D&C hysteroscopy with polypectomy Surgeon Chelsey Smith MD Anesthesia MAC Findings Uterus sounds to 8cm and is very vascular. There was a polyp with the left cornua. The posterior wall appears thickened. Description of Procedure The patient is taken to the operating room and placed under anesthesia in the dorsal lithotomy position. She was prepped and draped in the usual sterile fashion. [place] speculum was placed vagina and the cervix was grasped on the anterior lip with a tenaculum. The uterus is sounded to 8cm. The diagnostic hysteroscope was placed with the above-stated findings. The small Aveta resection device is placed and the polyp removed in its entirety. The hysteroscope was removed and the sharp OO curette is used to curette the endometrium until a good uterine cry was noted in all areas minimal material was obtained. Particular attention was paid to the posterior wall. All instruments are removed. Sponge, needle, and instrument counts are correct per the OR staff. The patient was awakened from anesthesia and taken to recovery in stable condition. Drains No Packing No Pathology Yes (Endometrial shavings and curettings) Complications No immediate complications Condition Stable Disposition PACU
[2024-08-04 09:15] VITALS: BP 97/56; PULSE 59
[2024-08-04 09:30] VITALS: BP 105/59; PULSE 57
[2024-08-04 10:00] VITALS: BP 99/69; PULSE 56; RESP 16
== END 2024-08-04 10:15 | disposition home or self-care (01) ==
PROVIDERS: PCP Emergency Medicine; Visit Provider Obstetrics & Gynecology Gynecology
PROC: 0U5B8ZZ Destruction of Endometrium, Via Natural or Artificial Opening Endoscopic (ICD-10-PCS; CPT 58563; principal; 2024-08-04 08:30)
DX: N84.0 Polyp of corpus uteri (principal); E55.9 Vitamin D deficiency, unspecified; M19.011 Primary osteoarthritis, right shoulder; K27.9 Peptic ulcer, site unspecified, unspecified as acute or chronic, without hemorrhage or perforation; K21.9 Gastro-esophageal reflux disease without esophagitis; J44.9 Chronic obstructive pulmonary disease, unspecified; F31.9 Bipolar disorder, unspecified; M81.0 Age-related osteoporosis without current pathological fracture; F41.9 Anxiety disorder, unspecified; E66.9 Obesity, unspecified; Z68.31 Body mass index [BMI] 31.0-31.9, adult; Z79.51 Long term (current) use of inhaled steroids; Z98.890 Other specified postprocedural states; Z98.51 Tubal ligation status
CPT/HCPCS: 58558; 88305; A9270; J2003; J2704; J3010; J7030; J7120